=== PATIENT | female | born 1990 | race African-American/Black ===

== ENCOUNTER 2017-01-10 18:48 | Inpatient (IN) | payer OTHER ==
[2017-01-10] MEDS ORDERED: CLINDAMYCIN 900 MG/DEXTROSE 50 ML IV ONE (19:45)
[2017-01-10] MEDS ORDERED: KETOROLAC 30 MG/1 ML SDV IVP ONE (19:45)
[2017-01-10] MEDS ORDERED: DEXAMETHASONE 10 MG/ML VIAL IVP ONE (19:45)
[2017-01-10] MEDS ORDERED: fentaNYL 100 MCG/2 ML INJ IVP ONE ×2 (19:45→22:44)
[2017-01-10 20:05] LABS: % IMMATURE GRANULYOCYTES 0.5 % (0.0-1.1); ABSOLUTE IMMATURE GRANULOCYTES 0.11 10^3/uL (0.00-0.10); ADD DIFF? NO; ADD MORPH? NO; ADD SCAN? NO; ATYPICAL LYMPHOCYTE FLAG 0 (0-99); FRAGMENT RBC FLAG 0 (0-99); HEMATOCRIT 40.4 % (38.0-47.0); HEMOGLOBIN 14.2 g/dL (12.6-16.3); LEFT SHIFT FLG 10 (0-99); LIPEMIA HEMOLYSIS FLAG 90 (0-99); MEAN CELL HEMOGLOBIN 28.6 pg (27.9-34.1); MEAN CELL HEMOGLOBIN CONCENTR. 35.1 g/dL (32.4-36.7); MEAN CELL VOLUME 81.3 fL (81.5-99.8); MEAN PLATELET VOLUME 10.9 fL (8.7-11.7); PLATELET CLUMPS FLAG 0 (0-99); PLATELET COUNT 197 10^3/uL (150-400); RED BLOOD CELL COUNT 4.97 10^6/uL (4.18-5.33)
[2017-01-10] MEDS ORDERED: NS 1,000 ML IV ONE (20:09)
[2017-01-10 20:19] LABS: ANION GAP 13 mEq/L (8-16); CALCIUM 9.4 mg/dL (8.5-10.4); CARBON DIOXIDE 19 mEq/l (22-31); CHLORIDE 104 mEq/L (97-110); CREATININE 0.6 mg/dL (0.6-1.0); GLOMERULAR FILTRATION RATE > 60; GLUCOSE 92 mg/dL (70-100); POTASSIUM 3.5 mEq/L (3.5-5.2); SODIUM 136 mEq/L (134-144)
[2017-01-10 20:23] LABS: BHCG-QUALITATIVE NEGATIVE
[2017-01-10 20:24] LABS: MONO TEST NEGATIVE (NEGATIVE)
[2017-01-10] MEDS ORDERED: IOPAMIDOL (ISOVUE-300) 100 ML BTL ONE (20:45)
--- NOTE | 2017-01-10 22:15 | EDPHY ---
H & P Stated Complaint: Sore throat;seen at [place] yesterday told she had viral illness HPI/ROS: Chief complaint: Sore throat History of present illness: This is a 26-year-old female who presents to the emergency department for evaluation of a sore throat. Patient reports the onset of symptoms over the last 2 and half days. They have been slowly worsening. She was seen yesterday by a healthcare provider who diagnosed her with a viral illness. She states despite home care symptoms are worsening. She feels very swollen. She is having difficulty opening her mouth. She cannot swallow, she is spitting up her saliva. She has had associated fevers and chills. She cannot eat or drink. She denies other associated signs or symptoms including no cough, no nausea or vomiting, no rash. Review of systems: A 10 point review of systems was obtained and other than described above was negative - Personal History LMP (Females 10-55): 15-21 Days Ago Current Tetanus Diphtheria and Acellular Pertussis (TDAP): Yes - Medical/Surgical History Other PMH: healthy - Social History Smoking Status: Current some day smoker - Physical Exam Exam: General Appearance: Alert, unwell appearing. Eyes: Pupils equal and round no pallor or injection. ENT, Mouth: Tympanic membranes, external auditory canals, external ears and surrounding soft tissue including over the mastoids are unremarkable. Nasopharynx is not injected. There is no rhinorrhea. Oropharynx is injected. There is diffuse edema. Significant tonsillar hypertrophy with associated exudate. There is no asymmetry. The uvula is midline. There is mild elevation of the tongue. Severe halitosis. Patient is having difficulty opening her mouth. She is drooling, spitting into a container and she cannot swallow. Respiratory: There are no retractions, lungs are clear to auscultation. Cardiovascular: Regular rate and rhythm. Gastrointestinal: Abdomen is soft and nontender, no masses, bowel sounds normal. Neurological: Alert and oriented x4. Strength and sensation intact and symmetrical. No meningismus. Skin: Warm and dry, no rashes. Musculoskeletal: Neck is supple nontender. Extremities are symmetrical, full range of motion. Psychiatric: Patient is oriented X 3, there is no agitation. Constitutional: Initial Vital Signs Temperature (C) 37 C 01/10/17 19:02 Heart Rate 107 H 01/10/17 19:02 Respiratory Rate 18 01/10/17 19:02 Blood Pressure 102/80 01/10/17 19:02 O2 Sat (%) 99 01/10/17 19:02 O2 Delivery Mode Room Air Allergies/Adverse Reactions: No Known Allergies Allergy (Verified 01/10/17 19:01) Home Medications: Medication Instructions Recorded NK [No Known Home Meds] 01/10/17 Medical Decision Making - Diagnostics Imaging Results: Imaging Impressions Neck CT 01/10/17 20:33 Impression: 1. Bilateral severe tonsillitis. 2. Bilateral jugulodigastric lymphadenitis. 3. No drainable abscess. Findings and recommendations discussed with Emergency Department physician, VICKI Wade, at 2140 hours, on January 10, 2017. Final report concurs with initial preliminary interpretation. Imaging: Discussed imaging studies w/ residential housekeeper Radiologist ED Course/Re-evaluation: Patient is discussed with my secondary supervising physician Dr. Symone Rodriguez. Patient presents to the emergency department for evaluation of a sore throat. On presentation she is unwell appearing, she is having difficulty opening her mouth and cannot control her oral secretions. Evaluation reveals significant leukocytosis, negative strep and mono test. Given trismus and difficulty controlling oral secretions at a CT scan is obtained and no abscess is noted, she does appear to have severe tonsillitis. Patient is symptomatically treated with minimal improvement in symptoms. On re-evaluation she is still unwell appearing. She is still having difficulty opening her mouth. She is not able to control her oral secretions. Given these findings, I am concerned for her ability to control her airway, she will be admitted to the hospital, to Dr. Falcon, for further evaluation and care. I have consulted with Ears Nose and Throat, Xin Velasquez, they will see patient in the morning. The plan has been discussed with the patient voiced understanding and agreement with it. Differential Diagnosis: Included but not limited to pharyngitis, strep pharyngitis, mononucleosis, tonsillitis, YARDER BOSS, retropharyngeal abscess, Gadiel's angina - Data Points Laboratory Results: Laboratory Results 01/10/17 19:55 01/10/17 19:55 01/10/17 01/10/17 01/10/17 19:55 19:55 19:55 WBC 20.92 10^3/uL H 10^3/uL (3.80-9.50) RBC 4.97 10^6/uL 10^6/uL (4.18-5.33) Hgb 14.2 g/dL g/dL (12.6-16.3) Hct 40.4 % % (38.0-47.0) MCV 81.3 fL L fL (81.5-99.8) MCH 28.6 pg pg (27.9-34.1) MCHC 35.1 g/dL g/dL (32.4-36.7) RDW 16.0 % H % (11.5-15.2) Plt Count 197 10^3/uL 10^3/uL (150-400) MPV 10.9 fL fL (8.7-11.7) Neut % (Auto) 86.5 % H % (39.3-74.2) Lymph % (Auto) 6.1 % L % (15.0-45.0) [place] % (Auto) 6.6 % % (4.5-13.0) Eos % (Auto) 0.1 % L % (0.6-7.6) Baso % (Auto) 0.2 % L % (0.3-1.7) Nucleat RBC Rel Count 0.0 % % (0.0-0.2) Absolute Neuts (auto) 18.08 10^3/uL H 10^3/uL (1.70-6.50) Absolute Lymphs (auto) 1.28 10^3/uL 10^3/uL (1.00-3.00) Absolute Monos (auto) 1.38 10^3/uL H 10^3/uL (0.30-0.80) Absolute Eos (auto) 0.03 10^3/uL 10^3/uL (0.03-0.40) Absolute Basos (auto) 0.04 10^3/uL 10^3/uL (0.02-0.10) Absolute Nucleated RBC 0.00 10^3/uL 10^3/uL (0-0.01) Immature Gran % 0.5 % % (0.0-1.1) Immature Gran # 0.11 10^3/uL H 10^3/uL (0.00-0.10) Sodium 136 mEq/L mEq/L (134-144) Potassium 3.5 mEq/L mEq/L (3.5-5.2) Chloride 104 mEq/L mEq/L (97-110) Carbon Dioxide 19 mEq/l L mEq/l (22-31) Anion Gap 13 mEq/L mEq/L (8-16) BUN 6 mg/dL L mg/dL (7-23) Creatinine 0.6 mg/dL mg/dL (0.6-1.0) Estimated GFR > 60 Glucose 92 mg/dL mg/dL (70-100) Calcium 9.4 mg/dL mg/dL (8.5-10.4) Beta HCG, Qual NEGATIVE Monoscreen NEGATIVE (NEGATIVE) Group A Strep Screen 01/10/17 19:00 WBC RBC Hgb Hct MCV MCH MCHC RDW Plt Count MPV Neut % (Auto) Lymph % (Auto) [place] % (Auto) Eos % (Auto) Baso % (Auto) Nucleat RBC Rel Count Absolute Neuts (auto) Absolute Lymphs (auto) Absolute Monos (auto) Absolute Eos (auto) Absolute Basos (auto) Absolute Nucleated RBC Immature Gran % Immature Gran # Sodium Potassium Chloride Carbon Dioxide Anion Gap BUN Creatinine Estimated GFR Glucose Calcium Beta HCG, Qual Monoscreen Group A Strep Screen NEGATIVE (NEGATIVE) Medications Given: Discontinued Medications Dexamethasone (Decadron Injection) 10 mg IVP EDNOW ONE Stop: 01/10/17 19:46 Last Admin: 01/10/17 20:07 Dose: 10 mg Fentanyl (Sublimaze) 50 mcg IVP EDNOW ONE Stop: 01/10/17 19:46 Last Admin: 01/10/17 20:08 Dose: 50 mcg Fentanyl (Sublimaze) 50 mcg IVP EDNOW ONE Stop: 01/10/17 22:45 Last Admin: 01/10/17 22:54 Dose: 50 mcg Clindamycin Phosphate/Dextrose (Cleocin 900 Mg (Premix)) 50 mls @ 100 mls/hr IV EDNOW ONE PRN Reason: Protocol Stop: 01/10/17 20:14 Last Admin: 01/10/17 20:21 Dose: 50 mls Sodium Chloride (Ns) 1,000 mls @ 0 mls/hr IV ONCE ONE PRN Reason: Wide Open Stop: 01/10/17 20:10 Last Admin: 01/10/17 20:09 Dose: 1,000 mls Ketorolac Tromethamine (Toradol) 30 mg IVP EDNOW ONE Stop: 01/10/17 19:46 Last Admin: 01/10/17 20:08 Dose: 30 mg Departure - Departure Disposition: [facility] Inpatient Acute Clinical Impression: Acute tonsillitis Qualifiers: Pharyngitis/tonsillitis etiology: unspecified etiology Qualified Code(s): J03.90 - Acute tonsillitis, unspecified Condition: Fair
[2017-01-10] MEDS ORDERED: ACETAMINOPHEN 650 MG SUPP PR PRN (22:52)
[2017-01-10] MEDS ORDERED: ONDANSETRON DISINTEGRATING 4 MG TAB PO PRN (22:52)
--- NOTE | 2017-01-10 23:00 | PDGENHP ---
History and Physical - Chief Complaint throat pain, fevers - History of Present Illness Patient is a 26 year old female with no significant past medical history who presents to the ED with worsening throat pain. Patient states her symptoms started on 01/08 with mild throat discomfort and chills. Since then, her symptoms have become progressively worse, with intermittent rigors, progressive pain in her throat and tonsillar swelling with associated lymphadenopathy. She went to her PMD's office yesterday and was told she likely had a viral syndrome and sent home with recommendations for symptom control. Today, however, her pain became so severe that she was unable to swallow aspirin/tylenol for treatment of her symptoms, she has been unable to eat food or drink adequate fluids and she continued to have fevers, so she decided to come to the ED for further evaluation. She denies any associated cough, nausea, vomiting, diarrhea , chest pain or shortness of breath. Of note, patient reports a history of recurrent tonsillitis, at least 5 episodes in the past 3 years, however, has never before required hospitalization. It was recommended to her in the past that she have a tonsillectomy, but she has not had this performed yet. On arrival to the ED, patient was afebrile and hemodynamically stable. Exam revealed purulent, edematous tonsils bilaterally. Labs were significant for leukocytosis. CT neck was obtained and revealed acute bilateral tonsillitis without evidence of abscess. She was cultured, ENT was consulted and she was initiated on clindamycin. History Information - Allergies/Home Medication List Allergies/Adverse Reactions: No Known Allergies Allergy (Verified 01/10/17 19:01) Home Medications: NK [No Known Home Meds] 01/10/17 [Last Taken Unknown] I have personally reviewed and updated: family history, medical history, social history, surgical history - Past Medical History no pertinent PMH - Surgical History Additional surgical history: wisdom tooth extraction - Family History Positive for: non-pertinent - Social History Smoking Status: Never smoked Alcohol Use: Occasionally Drug Use: None Additional social history: Patient is a [employer] student, lives in [place] with family. Review of Systems ROS: 10pt was reviewed & negative except for what was stated in HPI & below Physical Exam Temp Pulse Resp BP Pulse Ox 37 C 95 18 98/68 L 95 01/10/17 20:24 01/10/17 22:15 01/10/17 22:15 01/10/17 22:15 01/10/17 22:15 Constitutional: no apparent distress, appears nourished, not in pain Eyes: PERRL, anicteric sclera, EOMI Ears, Nose, Mouth, Throat: no oral mucosal ulcers, other (enlarged, purulent bilateral tonsils; with cervical LAD) Cardiovascular: regular rate and rhythym, no murmur, rub, or gallop, pulses symmetric bilaterally, No JVD, No edema Peripheral Pulses: 2+: dorsalis-pedis (R), dorsalis-pedis (L) Respiratory: no respiratory distress, no rales or rhonchi, clear to auscultation Gastrointestinal: normoactive bowel sounds, soft, non-tender abdomen, no palpable masses, No guarding, No rebound Genitourinary: no bladder fullness, no bladder tenderness Skin: warm, normal color, no rashes or abrasions, no fluctuance, no induration, No mottled Musculoskeletal: full muscle strength, no muscle tenderness, normal joint ROM, no joint effusions Neurologic: AAOx3, sensation intact bilaterally, CN II-XII Intact, No weakness, No numbness Psychiatric: interacting appropriately, not anxious, not encephalopathic, thought process linear Lymph, Heme, Immunologic: lymphadenopathy (anterior cervical chain tenderness bilaterally) Lab Data & Imaging Review 01/10/17 19:55 01/10/17 19:55 WBC 20.92 10^3/uL (3.80-9.50) H 01/10/17 19:55 RBC 4.97 10^6/uL (4.18-5.33) 01/10/17 19:55 Hgb 14.2 g/dL (12.6-16.3) 01/10/17 19:55 Hct 40.4 % (38.0-47.0) 01/10/17 19:55 MCV 81.3 fL (81.5-99.8) L 01/10/17 19:55 MCH 28.6 pg (27.9-34.1) 01/10/17 19:55 MCHC 35.1 g/dL (32.4-36.7) 01/10/17 19:55 RDW 16.0 % (11.5-15.2) H 01/10/17 19:55 Plt Count 197 10^3/uL (150-400) 01/10/17 19:55 MPV 10.9 fL (8.7-11.7) 01/10/17 19:55 Neut % (Auto) 86.5 % (39.3-74.2) H 01/10/17 19:55 Lymph % (Auto) 6.1 % (15.0-45.0) L 01/10/17 19:55 [place] % (Auto) 6.6 % (4.5-13.0) 01/10/17 19:55 Eos % (Auto) 0.1 % (0.6-7.6) L 01/10/17 19:55 Baso % (Auto) 0.2 % (0.3-1.7) L 01/10/17 19:55 Nucleat RBC Rel Count 0.0 % (0.0-0.2) 01/10/17 19:55 Absolute Neuts (auto) 18.08 10^3/uL (1.70-6.50) H 01/10/17 19:55 Absolute Lymphs (auto) 1.28 10^3/uL (1.00-3.00) 01/10/17 19:55 Absolute Monos (auto) 1.38 10^3/uL (0.30-0.80) H 01/10/17 19:55 Absolute Eos (auto) 0.03 10^3/uL (0.03-0.40) 01/10/17 19:55 Absolute Basos (auto) 0.04 10^3/uL (0.02-0.10) 01/10/17 19:55 Absolute Nucleated RBC 0.00 10^3/uL (0-0.01) 01/10/17 19:55 Immature Gran % 0.5 % (0.0-1.1) 01/10/17 19:55 Immature Gran # 0.11 10^3/uL (0.00-0.10) H 01/10/17 19:55 Sodium 136 mEq/L (134-144) 01/10/17 19:55 Potassium 3.5 mEq/L (3.5-5.2) 01/10/17 19:55 Chloride 104 mEq/L (97-110) 01/10/17 19:55 Carbon Dioxide 19 mEq/l (22-31) L 01/10/17 19:55 Anion Gap 13 mEq/L (8-16) 01/10/17 19:55 BUN 6 mg/dL (7-23) L 01/10/17 19:55 Creatinine 0.6 mg/dL (0.6-1.0) 01/10/17 19:55 Estimated GFR > 60 01/10/17 19:55 Glucose 92 mg/dL (70-100) 01/10/17 19:55 Calcium 9.4 mg/dL (8.5-10.4) 01/10/17 19:55 Beta HCG, Qual NEGATIVE 01/10/17 19:55 Monoscreen NEGATIVE (NEGATIVE) 01/10/17 19:55 Group A Strep Screen NEGATIVE (NEGATIVE) 01/10/17 19:00 Visualized and Interpreted imaging results: Yes Interpretation: CT neck: bilateral tonsillitis, no obvious abscess Assessment & Plan Assessment: Patient is a 26 year old female with history of recurrent tonsillitis who present to the ED with 3 days of odynophagia, enlarged and purulent tonsils. ED evaluation reveals sepsis secondary to acute tonsillitis. Plan: # acute tonsillitis Patient's symptoms, CT findings are consistent with acute tonsillitis without evidence of abscess. Given her significant leukocytosis and mild tachycardia present on presentation, she does meet sepsis criteria, but has no evidence of severe sepsis/end organ damage. She has been cultured, given IVF bolus and initiated on clindamycin for antibiotic coverage. ENT has been consulted, will evaluate the patient in AM. She has been initiated on dexamethasone for management of the acute tonsillar edema. - f/u blood cultures - continue clindamycin 600 mg q8h - cont Dexamethasone 4 mg IV q6h for edema - cont IVF hydration until able to tolerate PO - symptom/pain control as needed # dispo: admit to observation status # gen; NPO DVT ppx: low risk Full code
[2017-01-10] MEDS: LORazepam 0.5 MG TAB PO PRN (23:43)
[2017-01-11] MEDS: DEXAMETHASONE 4 MG/ML VIAL IVP SCH ×4 (02:41→19:47)
[2017-01-11] MEDS: CLINDAMYCIN 600 MG/DEXTROSE 50 ML IV SCH ×3 (04:45→19:47)
[2017-01-11 05:06] LABS: % IMMATURE GRANULYOCYTES 0.7 % (0.0-1.1); ABSOLUTE IMMATURE GRANULOCYTES 0.16 10^3/uL (0.00-0.10); ADD DIFF? NO; ADD MORPH? NO; ADD SCAN? YES; ATYPICAL LYMPHOCYTE FLAG 0 (0-99); FRAGMENT RBC FLAG 20 (0-99); HEMATOCRIT 36.5 % (38.0-47.0); HEMOGLOBIN 12.9 g/dL (12.6-16.3); LEFT SHIFT FLG 10 (0-99); LIPEMIA HEMOLYSIS FLAG 90 (0-99); MEAN CELL HEMOGLOBIN 28.9 pg (27.9-34.1); MEAN CELL HEMOGLOBIN CONCENTR. 35.3 g/dL (32.4-36.7); MEAN CELL VOLUME 81.8 fL (81.5-99.8); MEAN PLATELET VOLUME 11.1 fL (8.7-11.7); PLATELET CLUMPS FLAG 0 (0-99); PLATELET COUNT 192 10^3/uL (150-400); RED BLOOD CELL COUNT 4.46 10^6/uL (4.18-5.33); RED CELL DISTRIBUTION WIDTH 16.1 % (11.5-15.2)
[2017-01-11 05:20] LABS: ANION GAP 12 mEq/L (8-16); CALCIUM 8.4 mg/dL (8.5-10.4); CARBON DIOXIDE 16 mEq/l (22-31); CHLORIDE 110 mEq/L (97-110); CREATININE 0.5 mg/dL (0.6-1.0); GLOMERULAR FILTRATION RATE > 60; GLUCOSE 113 mg/dL (70-100); POTASSIUM 4.2 mEq/L (3.5-5.2); SODIUM 138 mEq/L (134-144)
[2017-01-11 05:28] LABS: APTT 30.1 SEC (23.0-38.0); INR 1.48 (0.83-1.16); PROTIME(PATIENT) 17.9 SEC (12.0-15.0)
[2017-01-11 06:18] LABS: SCAN NEGATIVE
[2017-01-11 08:10] VITALS: RESP 18
[2017-01-11] MEDS: NS 1,000 ML IV SCH ×2 (08:11→17:48)
[2017-01-11] MEDS: ONDANSETRON 4 MG/2 ML VIAL IVP PRN ×3 (08:56→19:46)
--- NOTE | 2017-01-11 12:21 | GCON ---
[f rep st] CONSULTATION HISTORY OF PRESENT ILLNESS: This is a 26-year-old female who presents to the emergency room on January 10, 2017, with a history of 2 days of sore throat. Patient notes that her symptoms have been slowl y worsening. The patient was diagnosed with a viral illness and sent home several days prior; howev er, her symptoms continued to worsen. She notes she is having difficulty opening her mouth as well as difficulty swallowing her own spit. She underwent a CT scan in the emergency room which showed s evere tonsillitis without drainable abscess. The patient was admitted to the hospital overnight for IV management. Of note, monospot was negative as was strep screen. She has been receiving clindam ycin and Decadron. She notes minimal improvement this morning. She continues to have difficulty ta susana p.o. PHYSICAL EXAM: GENERAL: This 26-year-old female, in no acute distress. Voice is strong, it is not muffled. HEAD AND FACE: Normocephalic, atraumatic. OROPHARYNX: Shows 2 to 3+ tonsils bilaterall y with significant exudates. There is no soft palate bulge or uvular deviation to suggest peritonsi llar abscess. She does have severe halitosis. NECK: Bilateral palpable lymphadenopathy. DIAGNOSTICS: I reviewed neck CT. I agree that there is no drainable abscess at this time. Labs we re reviewed which did show negative Monospot as well as negative strep screen. ASSESSMENT AND PLAN: This is a 26-year-old female with severe tonsillitis. She has no evidence of a drainable abscess at this time. Given the significant exudate, she certainly could have a viral p rocess, especially given that she did not have immediate improvement with the clindamycin. That dell simpson said, I would still continue the clindamycin for a total of 10 days. Would recommend continuing the Decadron. Patient can continue Decadron as an outpatient with a course such as 8 mg for 2 days, then 4 mg for 2 days. From an ENT perspective, as soon as patient can take p.o. adequately, I woul d recommend discharge home with followup as an outpatient. The patient should be given our number, , on discharge in order to set up followup for us the following week. 1. Continue clindamycin. Would recommend discharge home with 300 mg 3 times daily for the next 10 days. 2. Decadron. Continue while in-house, would recommend discharge on 8 mg for 2 days, then 4 mg for 2 days. 3. Recommend discharge as soon as patient is able to tolerate p.o. adequately. 4. Recommend outpatient followup with ENT, please give the patient our number, , on dis charge so that she can call to schedule a followup for this coming week. Thanks so much for allowing us to participate in the care of this patient. If you have any further questions, please do not hesitate to contact our office. /[id number]/MODL
--- NOTE | 2017-01-11 15:28 | HOSPPROG ---
Hospitalist Progress Note Assessment/Plan: * acute tonsillitis * Probably viral * But covering for bacterial * Improving on antibiotics and steroids * just now is able to sip liquids * Will watch one more day in the hospital Subjective: Throat is feeling better. Now is able to swallow Objective: Vital Signs Temp Pulse Resp BP Pulse Ox 36.4 C 82 18 100/61 98 01/11/17 08:00 01/11/17 08:00 01/11/17 08:00 01/11/17 08:00 01/11/17 08:00 Laboratory Results 01/11/17 04:58 01/11/17 04:58 01/10/17 01/11/17 01/12/17 05:59 05:59 05:59 Intake Total 1500 250 Output Total 600 Balance 1500 -350 PT 17.9 SEC (12.0-15.0) H 01/11/17 04:58 INR 1.48 (0.83-1.16) H 01/11/17 04:58 - Physical Exam Constitutional: no apparent distress, appears nourished, not in pain Eyes: anicteric sclera, EOMI Ears, Nose, Mouth, Throat: other (Swollen tonsils) Cardiovascular: regular rate and rhythym, no murmur, rub, or gallop Respiratory: no respiratory distress, no rales or rhonchi, clear to auscultation Neurologic: AAOx3 Psychiatric: interacting appropriately, not anxious, not encephalopathic, thought process linear ICD10 Worksheet Patient Problems: Problems Problem Status Onset Acute tonsillitis Acute
[2017-01-11] MEDS: HYDROmorphONE/DILAUDID 1 MG/ML SYR IVP PRN ×2 (15:40→22:14)
[2017-01-11 22:09] VITALS: BP 95/57; PULSE 72; TEMP 98.8; O2SAT 96
[2017-01-11] MEDS: LORazepam 0.5 MG TAB PO PRN (22:22)
[2017-01-12] MEDS: NS 1,000 ML IV SCH ×2 (02:12→11:12)
[2017-01-12] MEDS: HYDROmorphONE/DILAUDID 1 MG/ML SYR IVP PRN ×2 (03:01→08:42)
[2017-01-12] MEDS: DEXAMETHASONE 4 MG/ML VIAL IVP SCH ×3 (03:01→13:37)
[2017-01-12] MEDS: CLINDAMYCIN 600 MG/DEXTROSE 50 ML IV SCH ×2 (03:03→11:12)
[2017-01-12] MEDS: ONDANSETRON 4 MG/2 ML VIAL IVP PRN ×2 (08:42→13:00)
[2017-01-12 10:26] LABS: ABSOLUTE IMMATURE GRANULOCYTES 0.16 10^3/uL (0.00-0.10); ADD DIFF? NO; ADD MORPH? NO; ADD SCAN? NO; ATYPICAL LYMPHOCYTE FLAG 30 (0-99); FRAGMENT RBC FLAG 20 (0-99); HEMATOCRIT 34.1 % (38.0-47.0); HEMOGLOBIN 11.8 g/dL (12.6-16.3); LEFT SHIFT FLG 0 (0-99); LIPEMIA HEMOLYSIS FLAG 90 (0-99); MEAN CELL HEMOGLOBIN 28.6 pg (27.9-34.1); MEAN CELL HEMOGLOBIN CONCENTR. 34.6 g/dL (32.4-36.7); MEAN CELL VOLUME 82.8 fL (81.5-99.8); MEAN PLATELET VOLUME 11.4 fL (8.7-11.7); PLATELET CLUMPS FLAG 0 (0-99); PLATELET COUNT 183 10^3/uL (150-400); RED BLOOD CELL COUNT 4.12 10^6/uL (4.18-5.33); RED CELL DISTRIBUTION WIDTH 16.4 % (11.5-15.2)
[2017-01-12 11:09] LABS: ANION GAP 10 mEq/L (8-16); CALCIUM 8.1 mg/dL (8.5-10.4); CARBON DIOXIDE 19 mEq/l (22-31); CHLORIDE 106 mEq/L (97-110); CREATININE 0.5 mg/dL (0.6-1.0); GLOMERULAR FILTRATION RATE > 60; GLUCOSE 109 mg/dL (70-100); POTASSIUM 4.5 mEq/L (3.5-5.2); SODIUM 135 mEq/L (134-144)
[2017-01-12] MEDS ORDERED: HYDROCODONE/APAP 5/325 TAB PO PRN (13:05)
--- NOTE | 2017-01-12 15:34 | GDS ---
[f rep st] DISCHARGE SUMMARY DISCHARGE DIAGNOSES: Tonsillitis. HISTORY: This is a 26-year-old female with a history of recurrent tonsillitis. She presented with worsening throat pain. She was unable to take p.o. due to the pain. HOSPITAL COURSE: Patient was admitted and placed on antibiotics and steroids. ENT was consulted an d felt that she should be followed up outpatient for possible consideration of tonsillectomy. She i mproved with her antibiotics and will be discharged home to finish a 10-day course along with a few more days of steroids. TIME SPENT: Greater than 30 minutes was spent on discharge. /[id number]/MODL
== END 2017-01-12 15:28 | disposition home or self-care (01) | DRG 153 ==
LOC: F3E 23:05 → OBSVTOIN 01-11 16:13
PROVIDERS: ADMIT Internal Medicine; ATTEND Internal Medicine
DX: J03.91 Acute recurrent tonsillitis, unspecified (principal)
CPT/HCPCS: 96365; G0378; J1100; J1170; J1885; J2405; J3010; Q9967